=== PATIENT | male | born 1995 | race Caucasian/White ===

== ENCOUNTER 2024-07-06 09:00 | Outpatient (RCR) | payer OTHER, SELFPAY ==
--- NOTE | 2024-04-11 13:32 | OT.OPPOC ---
Physical, Occupational & Speech Therapy At [facility] Leonides Rossi [id number] 1995 Visit Care Team Role Provider Type Davide Gutierrez MD Family Provider Physician Address: [facility] [address], [facility] [place], [address] Perla Randolph DO Attending Provider Non-Staff Primary Care Provider Referring Provider Address: [facility] [place], [address] Occupational Therapy Plan of Care OT Outpatient Adult Evaluation Start: 04/11/24 10:40 Freq: Status: Active Protocol: Document 04/11/24 10:41 ARNAUD (Rec: 04/11/24 10:47 ARNAUD [id number]) General Information - Adult Visit Information Visit Number 1 Plan of Care Dates 04/11/24 - 06/20/24 Insurance Information [employer], 12 visits Session Time Visit Start Date 04/11/24 Visit Start Time 11:30 Visit Stop Time 12:15 Setting Treatment Setting Outpatient Care Visit Type Note Type Initial Evaluation Referral Referring Physician Perla Randolph Reason for Referral pain in L fingers Identification Identification Confirmed Yes Identification Confirmed By name, MR Previous Therapy Previous Therapy/Therapies Yes History of Therapy Pt has had manual therapy for R wrist, plantar fascitis, and sciatica Patient Questionnaires Quick Dash- Upper Extremity Quick Dash UE Score 34.1 Quick Dash UE Impairment 20 to 39% Impaired (Score 20- 39) Quick Dash- Work and Sports Modules Quick Dash W&S Score W 43.75, S 43.75 Quick Dash Work and Sport Impairment 40 to 59% Impaired (Score 40- 59) Goals Objective Measurements Objective Measurements AROM: L IP +20 to 52 (R IP +12 to 82); L MCP +10 to 31 (R MCP +10 to 50) 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 Senior Care Goals Senior Care Goals 1. Pt will demonstrate L 1st IP AROM flex to 70 or better for improved object manipulation. 2. 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 3. Pt will demonstrate L pain free aircraft ordnance technician strength within 10# or dominant hand for improved leisure tasks. 4. Pt will report improved perceived function with an improved QuickDash score of 25 or better. 5. Pt will report improved work function with an improved QuickDash W score of 25 or better. 6. Pt will report improved sport/leisure function with an improved QuickDash S score of 35 or better. 7. Pt will be I with HEP Assessment/Plan Assessment Patient Response Excellent Rehabilitation Potential Excellent Impairments Identified ADLs,Body Mechanics,Functional Activities,Pain,Weakness, Range of Motion,Meaningful Activities,Stiffness,Soft Tissue Mobility Treatment Assessment Pt is 28 yo M who has been referred for skilled OT services due to L hand weakness after injury to L thumb per order. Pt is R hand dominant. Pt reports that he cut himself on 02/07/24 when processing a deer. His knife slipped cutting himself near his L thumb IP. He said he could see bone, but he cleaned and dressed his wound and allowed it to heal. A few days after original injury he noted swelling and bruise. Pt went to his PCM approximately 1 month after injury due to persistent pain and decreased strength in his hand. Pt reports that recent xray showed a possible bone spur. 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 Pt reports that he typically ? pushes through the pain?. Pt reports pain primarily on palpation of scar area and surrounding IP, with gripping, and with aircraft ordnance technician and twist combination movements. Pt describes pain as initiating at the scar and then radiating throughout his thumb. Pt describes as sharp and 6/10. Pt reports occasional tingling in R thumb. Pt demonstrates a less than 8# aircraft ordnance technician strength difference; however, pt reports this is with 6/10 pain. Pt?s pinch strength difference are within norms and without any increased c/o pain. Pt presents with decreased web space in both hands with pronounced adductor tightness. OT is able to palpate thickening on the dorsum of L thumb proximal to IP, likely scar tissue from initial injury. Pt would benefit from skilled OT services to address STM, ROM, strength, pain management, and return to PLOF. Home Exercise Program HEP: scar massage, DIP PROM, adductor release techniques Reviewed with Patient Goals Plan Length of treatment (weeks) 10 Plan of Care Start Date 04/11/24 Plan of Care End Date 06/20/24 Treatment Frequency Once a Week Treatment Duration 45 Minutes Therapeutic Contents Active Range of Motion,Client Education,Functional Activities,Home Exercise Program,Joint Protection, Manual Therapy,Education, Neuromuscular Re-Education, Stretching/Flexibility Activities,Therapeutic Activities,Therapeutic Exercises,Modalities Modalities As Needed Types of Modalities Contrast Bath Additional Types of Modalities CP, PB, MHP Patient Instruction Home Exercise Program,Plan of Care,Questions/Concerns Functional Wrist/Hand Scan Hand Side Sensory Assessment Sensory Profile2 Electronically Signed by: Usha España OT 04/11/24 8894 If you are in agreement with this Plan of Care, please return a signed and dated copy. I have reviewed this Plan of Care and certify that the skilled therapy services above are required to meet the patient?s needs. Physician Signature Date Printed Name and Credentials Clinical Instructor Signature Printed Name and Credentials
--- NOTE | 2024-05-04 12:28 | OT.OP.TRT ---
Visit Care Team Role Provider Type M Feng Gutierrez MD Family Provider Physician Specialty: Pediatrics Address: [address] [place] [address], [place], [address] Email: [email or web address] Perla Randolph DO Attending Provider Non-Staff Primary Care Provider Referring Provider Specialty: Medical Address: [address] [place] [address], [id number] Email: Occupational Therapy Treatment Note OT Outpatient Treatment Note - Adult Start: 04/11/24 10:40 Freq: Status: Active Protocol: Document 05/04/24 12:14 ARNAUD (Rec: 05/04/24 12:28 ARNAUD [id number]) OT Outpatient Adult Treatment Note Session Time Visit Start Date 05/04/24 Visit Start Time 11:35 Visit Stop Time 12:10 Visit Information Visit Number 06/06 Plan of Care Dates 04/11/24 - 06/20/24 Insurance Information [facility], 12 visits Setting Treatment Setting Outpatient Care Visit Type Note Type Treatment Note - Subjective Identification Type Name Identification Reconciled With Medical Record Observations ?I feel like grabbing things that aren?t a solid object, like a curtain or a tarp, I?ve been noticing it.? Pt explains that he means he is having pain he cannot ignore at that time. Pt reports less pain when grasping something like a dumbbell. He has been carrying heavier items in his R hand because of his thumb. Pt reports pain at 6/10. Chief Complaint(s) Loss of Motion/Stiffness,Pain Effect on Activity,Restricts Patient/Caregiver Compliance with Home Fair Exercise Program - Objective Icer Air Conditioning Goals 1. Pt will demonstrate L 1st IP AROM flex to 70 or better for improved object manipulation. 2. 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 3. Pt will demonstrate L pain free shake table operator strength within 10# or dominant hand for improved leisure tasks. 4. Pt will report improved perceived function with an improved QuickDash score of 25 or better. 5. Pt will report improved work function with an improved QuickDash W score of 25 or better. 6. Pt will report improved sport/leisure function with an improved QuickDash S score of 35 or better. 7. Pt will be I with HEP - Exercises 1 Descriptor HEP: reviewed pt's HEP. Pt is consistently performing scar massage and IP PROM. OT re- educated pt on adductor release for improved web space and 3 options given on HEP for this. Pt verbalizes understanding. Manual Therapy Manual Therapy grade II glide L IP and MP for improved flexion L adductor release to improve web space PROM: L IP flexion, L MP flexion, composite L 1st digit flexion, L 1st digit palmar abduction, L 1st digit radial abduction Scar massage dorsal 1st digit at IP to pt tolerance - Assessment Patient Response to Treatment Excellent Rehabilitation Potential Excellent Impairments Identified ADLs,Body Mechanics,Functional Activities,Pain,Weakness, Range of Motion,Meaningful Activities,Stiffness,Soft Tissue Mobility Progress Towards Goals Good Progress Assessment of Overall Progress Improving - Plan Therapy Recommendations Continue with Current Program Amount of Therapy Recommended 2-3 Months Frequency of Treatment Once a Week Length of Session 45 Minutes Therapeutic Contents Active Range of Motion,Client Education,Functional Activities,Home Exercise Program,Joint Protection, Manual Therapy,Education, Neuromuscular Re-Education, Stretching/Flexibility Activities,Therapeutic Activities,Therapeutic Exercises,Modalities Modalities As Needed Types of Modalities Contrast Bath Additional Types of Modalities CP, PB, MHP
--- NOTE | 2024-05-09 12:05 | OT.OP.TRT ---
Visit Care Team Role Provider Type M Feng Gutierrez MD Family Provider Physician Specialty: Pediatrics Address: [address] [place] [address], [facility], [place], [address] Email: [email or web address] Perla Randolph DO Attending Provider Non-Staff Primary Care Provider Referring Provider Specialty: Medical Address: [address] [place] [address], [id number] Email: Occupational Therapy Treatment Note OT Outpatient Treatment Note - Adult Start: 04/11/24 10:40 Freq: Status: Active Protocol: Document 05/09/24 09:12 ARNAUD (Rec: 05/09/24 09:48 ARNAUD [id number]) OT Outpatient Adult Treatment Note Session Time Visit Start Date 05/09/24 Visit Start Time 09:05 Visit Stop Time 09:45 Visit Information Visit Number [id number] Plan of Care Dates 04/11/24 - 06/20/24 Insurance Information [facility], 12 visits Setting Treatment Setting Outpatient Care Visit Type Note Type Treatment Note - Subjective Identification Type Name Identification Reconciled With Medical Record Observations Pt reports that following last tx he was not able to tolerate the scar massage for several days. At start of tx he reports pain at 6/10 with touching his scar. Pt reports no pain during scar massage today following PB. Pt reports starting to have some pain at end of tx, did not rate. Chief Complaint(s) Loss of Motion/Stiffness,Pain Effect on Activity,Restricts Patient/Caregiver Compliance with Home Fair Exercise Program - Objective Prison Goals 1. Pt will demonstrate L 1st IP AROM flex to 70 or better for improved object manipulation. 2. 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 3. Pt will demonstrate L pain free protection agent strength within 10# or dominant hand for improved leisure tasks. 4. Pt will report improved perceived function with an improved QuickDash score of 25 or better. 5. Pt will report improved work function with an improved QuickDash W score of 25 or better. 6. Pt will report improved sport/leisure function with an improved QuickDash S score of 35 or better. 7. Pt will be I with HEP - Treatment 1 Descriptor PB to R hand x 10 minutes Exercises 1 Descriptor HEP: reviewed pt's HEP. Pt was unable to tolerate scar massage for several days after last tx. Pt reports performing adductor release and IP exercises regularly. Due to pt tolerating scar massage well after PB today, OT suggested that pt may try after heating his hand. Manual Therapy Manual Therapy grade II glide L IP and MP for improved flexion L adductor release to improve web space PROM: L IP flexion, L MP flexion, composite L 1st digit flexion, L 1st digit palmar abduction, L 1st digit radial abduction Scar massage dorsal 1st digit at IP to pt tolerance - Assessment Patient Response to Treatment Excellent Rehabilitation Potential Excellent Impairments Identified ADLs,Body Mechanics,Functional Activities,Pain,Weakness, Range of Motion,Meaningful Activities,Stiffness,Soft Tissue Mobility Progress Towards Goals Good Progress Assessment of Overall Progress Improving Assessment of Improvement Pt tolerated tx much better following PB at start of today 's tx. Pt was able to tolerate scar massage and passive stretch with less discomfort. OT recommends pt applying heat at home prior to HEP for improved comfort. Pt verbalizes understanding. Pt continues to have significant stiffness in L thumb and continues to benefit from skilled OT services for manual work. OT hopes to progress to strengthening in next few visits. Cont per established POC. - Plan Therapy Recommendations Continue with Current Program Amount of Therapy Recommended 2-3 Months Frequency of Treatment Once a Week Length of Session 45 Minutes Therapeutic Contents Active Range of Motion,Client Education,Functional Activities,Home Exercise Program,Joint Protection, Manual Therapy,Education, Neuromuscular Re-Education, Stretching/Flexibility Activities,Therapeutic Activities,Therapeutic Exercises,Modalities Modalities As Needed Types of Modalities Contrast Bath Additional Types of Modalities CP, PB, MHP
--- NOTE | 2024-05-20 10:13 | OT.OP.TRT ---
Visit Care Team Role Provider Type M Feng Gutierrez MD Family Provider Physician Specialty: Pediatrics Address: [facility], [facility], [place], [address] Email: [email or web address] Perla Randolph DO Attending Provider Non-Staff Primary Care Provider Referring Provider Specialty: Medical Address: [address] [place] [address], [id number] Email: Occupational Therapy Treatment Note OT Outpatient Treatment Note - Adult Start: 04/11/24 10:40 Freq: Status: Active Protocol: Document 05/20/24 07:25 ARNAUD (Rec: 05/20/24 07:21 ARNAUD [id number]) OT Outpatient Adult Treatment Note Session Time Visit Start Date 05/20/24 Visit Start Time 07:35 Visit Stop Time 08:12 Visit Information Visit Number 08/04 Plan of Care Dates 04/11/24 - 06/20/24 Insurance Information [facility], 12 visits Setting Treatment Setting Outpatient Care Visit Type Note Type Treatment Note - Subjective Identification Type Name Identification Reconciled With Medical Record Observations When I do the scar massaging it's less intense. Pt reports he performs 2-3x/day. Pt reports increased pain when using his hand outside in the cold at the end ranges of flexion and rates at 6/10 when it happens. Pt reports that the rest of the time he does not often have pain, when he does it's a little bit. Chief Complaint(s) Loss of Motion/Stiffness,Pain Effect on Activity,Restricts - Objective Objective Measurements IP AROM flex to 72; MCP flex 46 Retirement Goals 1. Pt will demonstrate L 1st IP AROM flex to 70 or better for improved object manipulation. MET 05/20/24 2. 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 3. Pt will demonstrate L pain free auto radio mechanic strength within 10# or dominant hand for improved leisure tasks. 4. Pt will report improved perceived function with an improved QuickDash score of 25 or better. 5. Pt will report improved work function with an improved QuickDash W score of 25 or better. 6. Pt will report improved sport/leisure function with an improved QuickDash S score of 35 or better. 7. Pt will be I with HEP - Treatment 1 Descriptor PB to R hand x 10 minutes Exercises 2 Descriptor isometric thumb IP flex, ext , PIP flex, ext x 10 each with 3-5 second holds 1 Descriptor HEP: reviewed pt's HEP. Pt continues to report performing scar massage regularly; however, since last tx he has been inconsistent with adductor release and IP exercises regularly. OT emphasizes importance of this exercises for improved web space and thumb mechanics Manual Therapy Manual Therapy grade II glide L IP and MP for improved flexion L adductor release to improve web space PROM: L IP flexion, L MP flexion, composite L 1st digit flexion, L 1st digit palmar abduction, L 1st digit radial abduction Scar massage dorsal 1st digit at IP to pt tolerance - Assessment Patient Response to Treatment Excellent Rehabilitation Potential Excellent Impairments Identified ADLs,Body Mechanics,Functional Activities,Pain,Weakness, Range of Motion,Meaningful Activities,Stiffness,Soft Tissue Mobility Progress Towards Goals Good Progress Assessment of Overall Progress Improving Assessment of Improvement Pt tolerates manual techniques well following PB. Pt reports that he can barely tolerate scar massage when his hand is not heated. Pt continues to have reduced web spacing and OT notes very thick and tight adductors. OT encourages pt to perform adductor release more regularly and explains the importance of this exercises. Pt demonstrates improved AROM of IP and MCP, meeting LTG #1 and making progress toward LTG #2. Overall, pt reports reduced instances of pain. Cont per established POC. Reviewed with Patient/Caregiver Goals,Progress Being Made,Home Exercise Program Patient/Caregiver Understanding Excellent - Plan Therapy Recommendations Continue with Current Program Amount of Therapy Recommended 2-3 Months Frequency of Treatment Once a Week Length of Session 45 Minutes Therapeutic Contents Active Range of Motion,Client Education,Functional Activities,Home Exercise Program,Joint Protection, Manual Therapy,Education, Neuromuscular Re-Education, Stretching/Flexibility Activities,Therapeutic Activities,Therapeutic Exercises,Modalities Modalities As Needed Types of Modalities Contrast Bath Additional Types of Modalities CP, PB, MHP
--- NOTE | 2024-05-23 10:18 | OT.OP.TRT ---
Visit Care Team Role Provider Type M Feng Gutierrez MD Family Provider Physician Specialty: Pediatrics Address: [facility], [facility] [place], [address] Email: [email or web address] Perla Randolph DO Attending Provider Non-Staff Primary Care Provider Referring Provider Specialty: Medical Address: [address] [place] [address], [id number] Email: Occupational Therapy Treatment Note OT Outpatient Treatment Note - Adult Start: 04/11/24 10:40 Freq: Status: Active Protocol: Document 05/23/24 09:00 ARNAUD (Rec: 05/23/24 10:17 ARNAUD [id number]) OT Outpatient Adult Treatment Note Session Time Visit Start Date 05/23/24 Visit Start Time 09:05 Visit Stop Time 09:45 Visit Information Visit Number 09/03 Plan of Care Dates 04/11/24 - 06/20/24 Insurance Information [facility], 12 visits Setting Treatment Setting Outpatient Care Visit Type Note Type Treatment Note - Subjective Identification Type Name Identification Reconciled With Medical Record Observations When it's cold obviously it hurts. The only real thing I notice is pain, so not like weakness. Everyday I stretch it and massage it. Pt reports pain at worse 6/10 and reduces to 1-2/10 with continued stretch. Chief Complaint(s) Loss of Motion/Stiffness,Pain Effect on Activity,Restricts - Objective Cobbler Sole Goals 1. Pt will demonstrate L 1st IP AROM flex to 70 or better for improved object manipulation. MET 05/20/24 2. 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 3. Pt will demonstrate L pain free urogynecology physician strength within 10# or dominant hand for improved leisure tasks. 4. Pt will report improved perceived function with an improved QuickDash score of 25 or better. 5. Pt will report improved work function with an improved QuickDash W score of 25 or better. 6. Pt will report improved sport/leisure function with an improved QuickDash S score of 35 or better. 7. Pt will be I with HEP - Treatment 1 Descriptor PB to R hand x 10 minutes Exercises 3 Descriptor web space: web space to web space followed by stretch x 30 seconds x5 contract relax exercises 30 second hold and 15 second stretch x5 2 Descriptor isometric thumb IP flex, ext , PIP flex, ext x 10 each with 3-5 second holds 1 Descriptor HEP: OT reviewed new exercises for improving web space and overall mechanics of L thumb. Pt verbalizes understanding for web space to web space exercises and contract relax exercises. Manual Therapy Manual Therapy grade II glide L IP and MP for improved flexion L adductor release to improve web space PROM: L IP flexion, L MP flexion, composite L 1st digit flexion, L 1st digit palmar abduction, L 1st digit radial abduction Scar massage dorsal 1st digit at IP to pt tolerance - Assessment Patient Response to Treatment Excellent Rehabilitation Potential Excellent Impairments Identified ADLs,Body Mechanics,Functional Activities,Pain,Weakness, Range of Motion,Meaningful Activities,Stiffness,Soft Tissue Mobility Progress Towards Goals Good Progress Assessment of Overall Progress Improving Assessment of Improvement Pt is pleasant and cooperative and appears eager to improve. Pt continues to have tight musculature around L thumb and reduce web spacing and continues to benefit from STM for scar mgmt as well as web spacing as well as for improved ROM of joints. Pt reports a feeling of looseness following manual techniques. Pt responded well to addition of web space HEP exercises and reports feeling improved movement following these during today's tx. Pt verbalizes understanding for performing HEP. Pt continues to be appropriate for skilled OT services. Cont per established POC. Reviewed with Patient/Caregiver Goals,Progress Being Made,Home Exercise Program Patient/Caregiver Understanding Excellent - Plan Therapy Recommendations Continue with Current Program Amount of Therapy Recommended 2-3 Months Frequency of Treatment Once a Week Length of Session 45 Minutes Therapeutic Contents Active Range of Motion,Client Education,Functional Activities,Home Exercise Program,Joint Protection, Manual Therapy,Education, Neuromuscular Re-Education, Stretching/Flexibility Activities,Therapeutic Activities,Therapeutic Exercises,Modalities Modalities As Needed Types of Modalities Contrast Bath Additional Types of Modalities CP, PB, MHP
--- NOTE | 2024-06-06 12:58 | OT.OP.TRT ---
Visit Care Team Role Provider Type M Feng Gutierrez MD Family Provider Physician Specialty: Pediatrics Address: [facility], [facility], [place], [address] Email: [email or web address] Perla Randolph DO Attending Provider Non-Staff Primary Care Provider Referring Provider Specialty: Medical Address: [address] [place] [address], [id number] Email: Occupational Therapy Treatment Note OT Outpatient Treatment Note - Adult Start: 04/11/24 10:40 Freq: Status: Active Protocol: Document 06/06/24 11:25 ARNAUD (Rec: 06/06/24 10:34 ARNAUD [id number]) OT Outpatient Adult Treatment Note Session Time Visit Start Date 06/06/24 Visit Start Time 11:25 Visit Stop Time 12:15 Visit Information Visit Number 10/04 Plan of Care Dates 04/11/24 - 06/20/24 Insurance Information [facility], 12 visits Setting Treatment Setting Outpatient Care Visit Type Note Type Treatment Note - Subjective Identification Type Name Identification Reconciled With Medical Record Observations It still hurts when I do the scar massage and exercises. Pt reports that for every day tasks he has less pain. Chief Complaint(s) Loss of Motion/Stiffness,Pain Effect on Activity,Restricts - Objective Objective Measurements Probate Clerk: L 125, 119, 85 (avg 109. 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 Pt will demonstrate L 1st IP AROM flex to 70 or better for improved object manipulation. MET 05/20/24 2. 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 3. Pt will demonstrate L pain free radio reporter strength within 10# or dominant hand for improved leisure tasks. MET 06/06/24 4. Pt will report improved perceived function with an improved QuickDash score of 25 or better. MET 06/06/24 5. Pt will report improved work function with an improved QuickDash W score of 25 or better. MET 06/06/24 6. Pt will report improved sport/leisure function with an improved QuickDash S score of 35 or better.MET 06/06/24 7. Pt will be I with HEP - Treatment 1 Descriptor PB to R hand x 10 minutes Exercises 3 Descriptor web space: web space to web space followed by stretch x 30 seconds x5 2 Descriptor tputty: 10-20 reps each 3 jaw pinch MCP and IP composite flexion radial abd 1 Descriptor HEP: OT issued pt red tputty and instructed in HEP to be performed 3x/wk. OT continues to stress importance of web space health and related HEP exercises. Pt verbalizes understanding Manual Therapy Manual Therapy grade II glide L IP and MP for improved flexion L adductor release to improve web space PROM: L IP flexion, L MP flexion, composite L 1st digit flexion, L 1st digit palmar abduction, L 1st digit radial abduction Scar massage dorsal 1st digit at IP to pt tolerance - Assessment Patient Response to Treatment Excellent Rehabilitation Potential Excellent Impairments Identified ADLs,Body Mechanics,Functional Activities,Pain,Weakness, Range of Motion,Meaningful Activities,Stiffness,Soft Tissue Mobility Progress Towards Goals Good Progress Assessment of Overall Progress Improving Assessment of Improvement Pt continues to be pleasant and cooperative and appears eager to improve. Pt continues to have tight thumb adductors and reduced web spacing and benefits from STM and stretching. Pt tolerates manual techniques well. Pt reports improvements in perceived function, having a 15.9 improvement in QD, 25 point improvement in QDW, and 31.25 point improvement in QDS , see objective section for details. Pt also demonstrates improvement in radio reporter and pinch strengths with radio reporter improving by 17# and pinches by 2.25 to 10#, see objective section for specific details. PT has met LTGs 3, 4, 5, and 6.Pt continues to be appropriate for skilled OT services to address remaining functional goals. Cont per established POC. Reviewed with Patient/Caregiver Goals,Progress Being Made,Home Exercise Program Patient/Caregiver Understanding Excellent - Plan Therapy Recommendations Continue with Current Program Amount of Therapy Recommended 2-3 Months Frequency of Treatment Once a Week Length of Session 45 Minutes Therapeutic Contents Active Range of Motion,Client Education,Functional Activities,Home Exercise Program,Joint Protection, Manual Therapy,Education, Neuromuscular Re-Education, Stretching/Flexibility Activities,Therapeutic Activities,Therapeutic Exercises,Modalities Modalities As Needed Types of Modalities Contrast Bath Additional Types of Modalities CP, PB, MHP
--- NOTE | 2024-06-15 09:00 | OT.OP.TRT ---
Visit Care Team Role Provider Type M Feng Gutierrez MD Family Provider Physician Specialty: Pediatrics Address: [facility], [facility] [place], [address] Email: [email or web address] Perla Randolph DO Attending Provider Non-Staff Primary Care Provider Referring Provider Specialty: Medical Address: [address] [place] [address], [id number] Email: Occupational Therapy Treatment Note OT Outpatient Treatment Note - Adult Start: 04/11/24 10:40 Freq: Status: Active Protocol: Document 06/15/24 08:15 ARNAUD (Rec: 06/15/24 08:11 ARNAUD [id number]) OT Outpatient Adult Treatment Note Session Time Visit Start Date 06/15/24 Visit Start Time 08:15 Visit Stop Time 08:55 Visit Information Visit Number 11/03 Plan of Care Dates 04/11/24 - 06/20/24 Insurance Information [facility], 12 visits Setting Treatment Setting Outpatient Care Visit Type Note Type Treatment Note - Subjective Identification Type Name Identification Reconciled With Medical Record Observations Pt reports that he has increased pain when it's really cold. Pt also says that he has noticed that when opening frozen food resealable bags for the first time he has a really difficult time opening it. He switched hands due to the pain. Pt reports that when he first started with therapy everything bothered him, but now it only happens with very specific tasks. Another example given was when transferring a pt using a sheet method, he had increased pain but was able to complete the task. Pt reports pain during these tasks at 6/ 10. Pt reports that he can now carry 50# weight across the gym without difficulty. This used to cause him pain. Chief Complaint(s) Loss of Motion/Stiffness,Pain Effect on Activity,Restricts - Objective Jail Goals 1. Pt will demonstrate L 1st IP AROM flex to 70 or better for improved object manipulation. MET 05/20/24 2. 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 3. Pt will demonstrate L pain free irradiated fuel handler strength within 10# or dominant hand for improved leisure tasks. MET 06/06/24 4. Pt will report improved perceived function with an improved QuickDash score of 25 or better. MET 06/06/24 5. Pt will report improved work function with an improved QuickDash W score of 25 or better. MET 06/06/24 6. Pt will report improved sport/leisure function with an improved QuickDash S score of 35 or better.MET 06/06/24 7. Pt will be I with HEP - Treatment 1 Descriptor PB to R hand x 10 minutes Exercises 5 Descriptor thumb stability: EPB rubber band x30 4 Descriptor pinch strength:10x2 graded clothespin lateral pinch yellow, red, green, blue , black 3 Descriptor web space: web space to web space followed by stretch x 30 seconds x5 contract relax (30sec/15sec) x3 Manual Therapy Manual Therapy grade II glide L IP and MP for improved flexion L adductor release to improve web space PROM: L IP flexion, L MP flexion, composite L 1st digit flexion, L 1st digit palmar abduction, L 1st digit radial abduction Scar massage dorsal 1st digit at IP to pt tolerance - Assessment Patient Response to Treatment Excellent Rehabilitation Potential Excellent Impairments Identified ADLs,Body Mechanics,Functional Activities,Pain,Weakness, Range of Motion,Meaningful Activities,Stiffness,Soft Tissue Mobility Progress Towards Goals Good Progress Assessment of Overall Progress Improving Assessment of Improvement Pt continues to be pleasant and cooperative and appears eager to improve. Pt continues to have tight thumb adductors and reduced web spacing and benefits from STM and stretching. Pt tolerates manual techniques well. Pt reports no pain throughout tx session today and reports that it feels loose and ready for the day following tx. Pt requires vcs to perform contract relax exercise correctly and for EPB rubber band exercise. Otherwise, pt is able to perform exercises correctly on demonstration. Pt reports improved daily function, with fewer occasions of his thumb interrupting activity. Pt continues to be appropriate for skilled OT services to address remaining functional goals. Cont per established POC. Reviewed with Patient/Caregiver Goals,Progress Being Made,Home Exercise Program Patient/Caregiver Understanding Excellent - Plan Therapy Recommendations Continue with Current Program Amount of Therapy Recommended 2-3 Months Frequency of Treatment Once a Week Length of Session 45 Minutes Therapeutic Contents Active Range of Motion,Client Education,Functional Activities,Home Exercise Program,Joint Protection, Manual Therapy,Education, Neuromuscular Re-Education, Stretching/Flexibility Activities,Therapeutic Activities,Therapeutic Exercises,Modalities Modalities As Needed Types of Modalities Contrast Bath Additional Types of Modalities CP, PB, MHP
--- NOTE | 2024-06-20 08:30 | OT.OPPN ---
Current Diagnoses Pain in left finger(s) (06/15/24) OT Progress Note OT Outpatient Treatment Note - Adult Start: 04/11/24 10:40 Freq: Status: Active Protocol: Document 06/20/24 08:20 ARNAUD (Rec: 06/20/24 08:30 ARNAUD [id number]) OT Outpatient Adult Treatment Note Setting Treatment Setting Outpatient Care Visit Type Note Type Progress Note - - Objective Objective Measurements Process Eng: L 125, 119, 85 (avg 109. 7 #) Pinch: lateral L 22.25#, pincer 19#, 3 jaw 22# Quick Dash: 18.2, Quick Dash Work 18.75, Quick Dash 12.5 IP AROM flex to 72; MCP flex 46 Chcf Goals 1. Pt will demonstrate L 1st IP AROM flex to 70 or better for improved object manipulation. MET 05/20/24 1a. Pt will demonstrate L 1st IP AROM flex to 80 or better for improved object manipulation. 2. 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 3. Pt will demonstrate L pain free smog technician strength within 10# or dominant hand for improved leisure tasks. MET 06/06/24 4. Pt will report improved perceived function with an improved QuickDash score of 25 or better. MET 06/06/24 4a. Pt will report improved perceived function with an improved QuickDash score of 8 or better. 5. Pt will report improved work function with an improved QuickDash W score of 25 or better. MET 06/06/24 5a. Pt will report improved work function with an improved QuickDash W score of 10 or better. 6. Pt will report improved sport/leisure function with an improved QuickDash S score of 35 or better.MET 06/06/24 7. Pt will be I with HEP - - Assessment Patient Response to Treatment Excellent Rehabilitation Potential Excellent Impairments Identified ADLs,Body Mechanics,Functional Activities,Pain,Weakness, Range of Motion,Meaningful Activities,Stiffness,Soft Tissue Mobility Progress Towards Goals Good Progress Assessment of Overall Progress Improving Assessment of Improvement Pt had to cancel his appointment today due to flight medical appointment. OT called and spoke with pt concerning progress and pt's plans moving forward. Pt told OT that he would like to continue with OT for improved ROM and decreased pain. Pt continues to have pain complaints of 6/10. During txs , pt presents with tight thumb adductors and reduced web spacing, pt also has decreased overall thumb AROM and benefits from STM, stretching, and manual techniques. Pt requires vcs to perform contract relax exercise correctly and for EPB rubber band exercise, benefit from additional guidance from OT. Pt continues to be appropriate for skilled OT services to address remaining functional goals. Pt would benefit from 1x/wk x 5wks. Reviewed with Patient/Caregiver Goals,Progress Being Made,Home Exercise Program Patient/Caregiver Understanding Excellent - Plan Therapy Recommendations Continue with Current Program Comment 5 weeks Frequency of Treatment Once a Week Length of Session 45 Minutes Therapeutic Contents Active Range of Motion,Client Education,Functional Activities,Home Exercise Program,Joint Protection, Manual Therapy,Education, Neuromuscular Re-Education, Stretching/Flexibility Activities,Therapeutic Activities,Therapeutic Exercises,Modalities Modalities As Needed Types of Modalities Contrast Bath Additional Types of Modalities CP, PB, MHP If you are in agreement with this Plan of Care, please return a signed and dated copy. I have reviewed this Plan of Care and certify that the skilled therapy services above are required to meet the patient?s needs. Physician Signature Date Printed Name and Credentials Clinical Instructor Signature Printed Name and Credentials
--- NOTE | 2024-06-22 10:34 | OT.OP.TRT ---
Visit Care Team Role Provider Type M Feng Gutierrez MD Family Provider Physician Specialty: Pediatrics Address: [facility], [facility] [[email or web address] B, [place], [address] Email: [email or web address] Perla Randolph DO Attending Provider Non-Staff Primary Care Provider Referring Provider Specialty: Medical Address: [address] [place] [address], [id number] Email: Occupational Therapy Treatment Note OT Outpatient Treatment Note - Adult Start: 04/11/24 10:40 Freq: Status: Active Protocol: Document 06/22/24 08:55 ARNAUD (Rec: 06/22/24 08:56 ARNAUD [id number]) OT Outpatient Adult Treatment Note Session Time Visit Start Date 06/22/24 Visit Start Time 09:00 Visit Stop Time 09:42 Visit Information Visit Number 1/5 (7 previous) Plan of Care Dates 06/20/23 - 07/26/24 Insurance Information [facility], 12 visits Setting Treatment Setting Outpatient Care Visit Type Note Type Treatment Note - Subjective Identification Type Name Identification Reconciled With Medical Record Observations Pt reports that he still has pain with pinching tasks. Pt says the pain is there and I can't not notice it. Pt reports that this morning he was trying to open a resealable bag of frozen food and it was very difficult to complete. Pt without c/o pain during tx. Chief Complaint(s) Loss of Motion/Stiffness,Pain Effect on Activity,Restricts - Objective Mcc Goals 1. Pt will demonstrate L 1st IP AROM flex to 70 or better for improved object manipulation. MET 05/20/24 1a. Pt will demonstrate L 1st IP AROM flex to 80 or better for improved object manipulation. 2. 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 3. Pt will demonstrate L pain free service station operator strength within 10# or dominant hand for improved leisure tasks. MET 06/06/24 4. Pt will report improved perceived function with an improved QuickDash score of 25 or better. MET 06/06/24 4a. Pt will report improved perceived function with an improved QuickDash score of 8 or better. 5. Pt will report improved work function with an improved QuickDash W score of 25 or better. MET 06/06/24 5a. Pt will report improved work function with an improved QuickDash W score of 10 or better. 6. Pt will report improved sport/leisure function with an improved QuickDash S score of 35 or better.MET 06/06/24 7. Pt will be I with HEP - Treatment 1 Descriptor PB to R hand x 10 minutes Exercises 5 Descriptor thumb stability: EPB rubber band x30 lateral pinch pulls x 15 4 Descriptor pinch strength:15x2 graded clothespin lateral pinch yellow, red, green, blue , black 3 Descriptor web space: web space to web space followed by stretch x 30 seconds x5 contract relax (30sec/15sec) x3 2 Descriptor tputty: 10-20 reps each 3 jaw pinch MCP and IP composite flexion radial abd Manual Therapy Manual Therapy grade II glide L IP and MP for improved flexion L adductor release to improve web space PROM: L IP flexion, L MP flexion, composite L 1st digit flexion, L 1st digit palmar abduction, L 1st digit radial abduction Scar massage dorsal 1st digit at IP to pt tolerance - Assessment Patient Response to Treatment Excellent Rehabilitation Potential Excellent Impairments Identified ADLs,Body Mechanics,Functional Activities,Pain,Weakness, Range of Motion,Meaningful Activities,Stiffness,Soft Tissue Mobility Progress Towards Goals Good Progress Assessment of Overall Progress Improving Assessment of Improvement Pt continues to be pleasant and cooperative and eager to improve. Pt demonstrates I with tputty HEP. Pt continues to need vc to perform contract relax exercises correctly and EPB rubber band strengthening exercises. Pt tolerates increased reps and new exercises for improved pinching. Pt reports that his pain is with temperature change and lateral pinching with resistance. OT encourages pt to increase the frequency of his tputty HEP to daily, if he has no increased pain or significant fatigue. OT recommended following up these exercises with his web space releasing exercises. Pt verbalized understanding. Pt continues to be appropriate for skilled OT services. OT to grade strengthening tasks as pt is able. Cont per POC. Reviewed with Patient/Caregiver Goals,Progress Being Made,Home Exercise Program Patient/Caregiver Understanding Excellent - Plan Therapy Recommendations Continue with Current Program Comment 5 weeks Frequency of Treatment Once a Week Length of Session 45 Minutes Therapeutic Contents Active Range of Motion,Client Education,Functional Activities,Home Exercise Program,Joint Protection, Manual Therapy,Education, Neuromuscular Re-Education, Stretching/Flexibility Activities,Therapeutic Activities,Therapeutic Exercises,Modalities Modalities As Needed Types of Modalities Contrast Bath Additional Types of Modalities CP, PB, MHP
--- NOTE | 2024-06-29 10:41 | OT.OP.TRT ---
Visit Care Team Role Provider Type M Feng Gutierrez MD Family Provider Physician Specialty: Pediatrics Address: [address] [place] [address], [facility], [place], [address] Email: [email or web address] Perla Randolph DO Attending Provider Non-Staff Primary Care Provider Referring Provider Specialty: Medical Address: [address] [place] [address], [address] Email: Occupational Therapy Treatment Note OT Outpatient Treatment Note - Adult Start: 04/11/24 10:40 Freq: Status: Active Protocol: Document 06/29/24 09:00 ARNAUD (Rec: 06/29/24 08:51 ARNAUD [id number]) OT Outpatient Adult Treatment Note Session Time Visit Start Date 06/29/24 Visit Start Time 09:00 Visit Stop Time 09:43 Visit Information Visit Number 2/5 (7 previous) Plan of Care Dates 06/20/23 - 07/26/24 Insurance Information [employer], 12 visits Setting Treatment Setting Outpatient Care Visit Type Note Type Treatment Note - Subjective Identification Type Name Identification Reconciled With Medical Record Observations Pt reports that the other day he did 50# farmers carries at the gym and didn't have any pain or difficulty with his L hand. Pt reports that fully flexed position and opening things (frozen bag) as well as pain when using his hand in the cold. It was really limiting me at first but I can do those things now. Chief Complaint(s) Loss of Motion/Stiffness,Pain Effect on Activity,Restricts - Objective Manager Trust Goals 1. Pt will demonstrate L 1st IP AROM flex to 70 or better for improved object manipulation. MET 05/20/24 1a. Pt will demonstrate L 1st IP AROM flex to 80 or better for improved object manipulation. 2. 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 3. Pt will demonstrate L pain free outsole splicer strength within 10# or dominant hand for improved leisure tasks. MET 06/06/24 4. Pt will report improved perceived function with an improved QuickDash score of 25 or better. MET 06/06/24 4a. Pt will report improved perceived function with an improved QuickDash score of 8 or better. 5. Pt will report improved work function with an improved QuickDash W score of 25 or better. MET 06/06/24 5a. Pt will report improved work function with an improved QuickDash W score of 10 or better. 6. Pt will report improved sport/leisure function with an improved QuickDash S score of 35 or better.MET 06/06/24 7. Pt will be I with HEP - Treatment 1 Descriptor PB to R hand x 10 minutes Exercises 5 Descriptor thumb stability: EPB rubber band x lateral pinch pulls x 4 Descriptor pinch strength: graded clothespin lateral pinch yellow, red, green, blue , black 10x2 black digi flex x30 tband lateral pinch pull (L5) x 30 3 Descriptor web space: web space to web space followed by stretch x 30 seconds x5 contract relax (30sec/15sec) x3 2 Descriptor tputty (blue): 10 reps each 3 jaw pinch MCP and IP composite flexion 1 Descriptor HEP: Manual Therapy Manual Therapy grade II glide L IP and MP for improved flexion L adductor release to improve web space PROM: L IP flexion, L MP flexion, composite L 1st digit flexion, L 1st digit palmar abduction, L 1st digit radial abduction Scar massage dorsal 1st digit at IP to pt tolerance - Assessment Patient Response to Treatment Excellent Rehabilitation Potential Excellent Impairments Identified ADLs,Body Mechanics,Functional Activities,Pain,Weakness, Range of Motion,Meaningful Activities,Stiffness,Soft Tissue Mobility Progress Towards Goals Good Progress Assessment of Overall Progress Improving Assessment of Improvement Pt continues to be pleasant and cooperative and eager to improve. Pt demonstrates I with tputty HEP. Putty was increased to blue resistance. Pt continues to need vc to perform contract relax exercises correctly. Pt tolerates increased reps and new exercises for improved pinching. Pt reports that his pain is primarily associated with temperature change and lateral pinching with resistance. Last tx, OT encouraged pt to increase the frequency of his tputty HEP to daily, however, with increased resistance OT recommended that he return to 3x/wk initially. Pt verbalizes understanding. OT recommended following up these exercises with his web space releasing exercises. Pt verbalized understanding. Pt continues to be appropriate for skilled OT services. OT to grade strengthening tasks as pt is able. Cont per POC. Reviewed with Patient/Caregiver Goals,Progress Being Made,Home Exercise Program Patient/Caregiver Understanding Excellent - Plan Therapy Recommendations Continue with Current Program Comment 5 weeks Frequency of Treatment Once a Week Length of Session 45 Minutes Therapeutic Contents Active Range of Motion,Client Education,Functional Activities,Home Exercise Program,Joint Protection, Manual Therapy,Education, Neuromuscular Re-Education, Stretching/Flexibility Activities,Therapeutic Activities,Therapeutic Exercises,Modalities Modalities As Needed Types of Modalities Contrast Bath Additional Types of Modalities CP, PB, MHP
--- NOTE | 2024-07-06 09:43 | OT.OP.TRT ---
Visit Care Team Role Provider Type M Feng Gutierrez MD Family Provider Physician Specialty: Pediatrics Address: [facility], [facility], [place], [address] Email: [email or web address] Perla Randolph DO Attending Provider Non-Staff Primary Care Provider Referring Provider Specialty: Medical Address: [address] [place] [address], [id number] Email: Occupational Therapy Treatment Note OT Outpatient Treatment Note - Adult Start: 04/11/24 10:40 Freq: Status: Active Protocol: Document 07/06/24 09:00 ARNAUD (Rec: 07/06/24 08:55 ARNAUD [id number]) OT Outpatient Adult Treatment Note Session Time Visit Start Date 07/06/24 Visit Start Time 08:58 Visit Stop Time 09:38 Visit Information Visit Number 3/5 (7 previous) Plan of Care Dates 06/20/23 - 07/26/24 Insurance Information [facility], 12 visits Setting Treatment Setting Outpatient Care Visit Type Note Type Treatment Note - Subjective Identification Type Name Identification Reconciled With Medical Record Observations It's the same. When it gets cold it hurts. It may not be as bad with opening things. The time I really notice it is when I'm doing a full flex. Chief Complaint(s) Loss of Motion/Stiffness,Pain Effect on Activity,Restricts - Objective Residential Goals 1. Pt will demonstrate L 1st IP AROM flex to 70 or better for improved object manipulation. MET 05/20/24 1a. Pt will demonstrate L 1st IP AROM flex to 80 or better for improved object manipulation. 2. Pt will demonstrate L 1st MCP flex to 50 or better for improved resource conservation specialist tasks. 3. Pt will demonstrate L pain free resource conservation specialist strength within 10# or dominant hand for improved leisure tasks. MET 06/06/24 4. Pt will report improved perceived function with an improved QuickDash score of 25 or better. MET 06/06/24 4a. Pt will report improved perceived function with an improved QuickDash score of 8 or better. 5. Pt will report improved work function with an improved QuickDash W score of 25 or better. MET 06/06/24 5a. Pt will report improved work function with an improved QuickDash W score of 10 or better. 6. Pt will report improved sport/leisure function with an improved QuickDash S score of 35 or better.MET 06/06/24 7. Pt will be I with HEP MET - Treatment 1 Descriptor PB to R hand x 10 minutes Exercises 5 Descriptor thumb stability: EPB rubber band x 30 4 Descriptor pinch strength: graded clothespin lateral pinch red, green, blue, black 10x2 black digi flex x30 tband lateral pinch pull (L5) x 50 3 Descriptor web space: web space to web space followed by stretch x 30 seconds x4 contract relax (30sec/15sec) x4 1 Descriptor HEP: Manual Therapy Manual Therapy grade II glide L IP and MP for improved flexion L adductor release to improve web space PROM: L IP flexion, L MP flexion, composite L 1st digit flexion, L 1st digit palmar abduction, L 1st digit radial abduction Scar massage dorsal 1st digit at IP to pt tolerance - Assessment Patient Response to Treatment Excellent Rehabilitation Potential Excellent Impairments Identified ADLs,Body Mechanics,Functional Activities,Pain,Weakness, Range of Motion,Meaningful Activities,Stiffness,Soft Tissue Mobility Progress Towards Goals Good Progress Assessment of Overall Progress Improving Assessment of Improvement Pt continues to be pleasant and cooperative and eager to improve. Pt continues to have decreased web space and tight thumb adductors, benefiting from manual techniques. Pt continues to need vc to perform contract relax exercises correctly. Pt tolerates increased reps with tband pulls. Pt continues to be appropriate for skilled OT services. Pt denies pain during tx today other than mild discomfort with scar massage. Cont per POC. Reviewed with Patient/Caregiver Goals,Progress Being Made,Home Exercise Program Patient/Caregiver Understanding Excellent - Plan Therapy Recommendations Continue with Current Program Comment 5 weeks Frequency of Treatment Once a Week Length of Session 45 Minutes Therapeutic Contents Active Range of Motion,Client Education,Functional Activities,Home Exercise Program,Joint Protection, Manual Therapy,Education, Neuromuscular Re-Education, Stretching/Flexibility Activities,Therapeutic Activities,Therapeutic Exercises,Modalities Modalities As Needed Types of Modalities Contrast Bath Additional Types of Modalities CP, PB, MHP
--- NOTE | 2024-07-27 09:35 | OT.OP.DC ---
Visit Care Team Role Provider Type Davide Gutierrez MD Family Provider Physician Address: [facility], [facility], [place], [address] Email: [email or web address] Perla Randolph DO Attending Provider Non-Staff Primary Care Provider Referring Provider Address: [address] [place] [address], [id number] Email: OT Outpatient OT Outpatient Adult Evaluation Start: 04/11/24 10:40 Freq: Status: Active Protocol: Document 04/11/24 10:41 ARNAUD (Rec: 04/11/24 10:47 ARNAUD [id number]) General Information - Adult Visit Information Visit Number 1 Plan of Care Dates 04/11/24 - 06/20/24 Insurance Information [employer], 12 visits Session Time Visit Start Date 04/11/24 Visit Start Time 11:30 Visit Stop Time 12:15 Setting Treatment Setting Outpatient Care Visit Type Note Type Initial Evaluation Referral Referring Physician Perla Randolph Reason for Referral pain in L fingers Identification Identification Confirmed Yes Identification Confirmed By name, MR Previous Therapy Previous Therapy/Therapies Yes History of Therapy Pt has had manual therapy for R wrist, plantar fasciitis, and sciatica Patient Questionnaires Quick Dash- Upper Extremity Quick Dash UE Score 34.1 Quick Dash UE Impairment 20 to 39% Impaired (Score 20- 39) Quick Dash- Work and Sports Modules Quick Dash W&S Score W 43.75, S 43.75 Quick Dash Work and Sport Impairment 40 to 59% Impaired (Score 40- 59) Goals Objective Measurements Objective Measurements AROM: L IP +20 to 52 (R IP +12 to 82); L MCP +10 to 31 (R MCP +10 to 50) Stations Superintendent: R 110, 90, 100 (avg 100# ) L 98, 85, 95 (avg 92.7#) Pinch: lateral R 22#, L 20#; pincer R 15#, L 12#; 3 jaw R 15#, 12# Treatment Treatment OT performed scar massage and educated pt on correct performance. Longterm Goals Longterm Goals 1. Pt will demonstrate L 1st IP AROM flex to 70 or better for improved object manipulation. 2. 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 3. Pt will demonstrate L pain free straight tooth gear generator operator strength within 10# or dominant hand for improved leisure tasks. 4. Pt will report improved perceived function with an improved QuickDash score of 25 or better. 5. Pt will report improved work function with an improved QuickDash W score of 25 or better. 6. Pt will report improved sport/leisure function with an improved QuickDash S score of 35 or better. 7. Pt will be I with HEP Assessment/Plan Assessment Patient Response Excellent Rehabilitation Potential Excellent Impairments Identified ADLs,Body Mechanics,Functional Activities,Pain,Weakness, Range of Motion,Meaningful Activities,Stiffness,Soft Tissue Mobility Treatment Assessment Pt is 28 yo M who has been referred for skilled OT services due to L hand weakness after injury to L thumb per order. Pt is R hand dominant. Pt reports that he cut himself on 02/07/24 when processing a deer. His knife slipped cutting himself near his L thumb IP. He said he could see bone, but he cleaned and dressed his wound and allowed it to heal. A few days after original injury he noted swelling and bruise. Pt went to his PCM approximately 1 month after injury due to persistent pain and decreased strength in his hand. Pt reports that recent xray showed a possible bone spur. 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 For leisure, pt enjoys weight lifting, functional fitness, cardio and generally uses electrical machinist weights. Pt reports that he typically ? pushes through the pain?. Pt reports pain primarily on palpation of scar area and surrounding IP, with gripping, and with straight tooth gear generator operator and twist combination movements. Pt describes pain as initiating at the scar and then radiating throughout his thumb. Pt describes as sharp and 6/10. Pt reports occasional tingling in R thumb. Pt demonstrates a less than 8# straight tooth gear generator operator strength difference; however, pt reports this is with 6/10 pain. Pt?s pinch strength difference are within norms and without any increased c/o pain. Pt presents with decreased web space in both hands with pronounced adductor tightness. OT is able to palpate thickening on the dorsum of L thumb proximal to IP, likely scar tissue from initial injury. Pt would benefit from skilled OT services to address STM, ROM, strength, pain management, and return to PLOF. Home Exercise Program HEP: scar massage, DIP PROM, adductor release techniques Reviewed with Patient Goals Plan Length of treatment (weeks) 10 Plan of Care Start Date 04/11/24 Plan of Care End Date 06/20/24 Treatment Frequency Once a Week Treatment Duration 45 Minutes Therapeutic Contents Active Range of Motion,Client Education,Functional Activities,Home Exercise Program,Joint Protection, Manual Therapy,Education, Neuromuscular Re-Education, Stretching/Flexibility Activities,Therapeutic Activities,Therapeutic Exercises,Modalities Modalities As Needed Types of Modalities Contrast Bath Additional Types of Modalities CP, PB, MHP Patient Instruction Home Exercise Program,Plan of Care,Questions/Concerns Functional Wrist/Hand Scan Hand Side Sensory Assessment Sensory Profile2 OT Outpatient Treatment Note - Adult Start: 04/11/24 10:40 Freq: Status: Active Protocol: Document 07/27/24 09:22 ARNAUD (Rec: 07/27/24 09:35 ARNAUD [id number]) OT Outpatient Adult Treatment Note Visit Information Visit Number 3/5 (7 previous) Plan of Care Dates 06/20/23 - 07/26/24 Insurance Information [employer], 12 visits Setting Treatment Setting Outpatient Care Visit Type Note Type Discharge Summary - - Objective Objective Measurements Stations Superintendent: L 125, 119, 85 (avg 109. 7 #) Pinch: lateral L 22.25#, pincer 19#, 3 jaw 22# Quick Dash: 18.2, Quick Dash Work 18.75, Quick Dash 12.5 IP AROM flex to 72; MCP flex 46 Longterm Goals 1. Pt will demonstrate L 1st IP AROM flex to 70 or better for improved object manipulation. MET 05/20/24 1a. Pt will demonstrate L 1st IP AROM flex to 80 or better for improved object manipulation. 2. 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 3. Pt will demonstrate L pain free straight tooth gear generator operator strength within 10# or dominant hand for improved leisure tasks. MET 06/06/24 4. Pt will report improved perceived function with an improved QuickDash score of 25 or better. MET 06/06/24 4a. Pt will report improved perceived function with an improved QuickDash score of 8 or better. 5. Pt will report improved work function with an improved QuickDash W score of 25 or better. MET 06/06/24 5a. Pt will report improved work function with an improved QuickDash W score of 10 or better. 6. Pt will report improved sport/leisure function with an improved QuickDash S score of 35 or better.MET 06/06/24 7. Pt will be I with HEP MET - - Assessment Patient Response to Treatment Excellent Impairments Identified ADLs,Body Mechanics,Functional Activities,Pain,Weakness, Range of Motion,Meaningful Activities,Stiffness,Soft Tissue Mobility Progress Towards Goals Excellent Progress,Appropriate for Discharge Assessment of Overall Progress Improving Assessment of Improvement Pt was last seen by skilled OT services on 07/06/24. Pt some continued pain and difficulty specific to lateral pinching tasks (for example; opening a frozen resealable bag or performing a sheet style patient transfer). He also continues to have increased pain with cold temperatures. He reports that all other daily use and functional tasks have improved. In addition he shows excellent progress with respect to ROM, straight tooth gear generator operator and pinch strength, and perceived function (see objective section for details). Pt is I with his HEP and will likely continue to make gains with respect to pain and function by continuing this. Spoke with pt on 07/25/24, pt says he is ready to d/c and comfortable continuing on his own. D/C from skilled OT services at this time. Reviewed with Patient/Caregiver Goals,Progress Being Made Patient/Caregiver Understanding Excellent - Plan Therapy Recommendations Discharge to Home Exercise Program
== END 2024-07-28 13:58 | disposition home or self-care (01) ==
LOC: OT 09:00
PROVIDERS: Family Provider Pediatrics
DX: M79.645 Pain in left finger(s) (principal)
CPT/HCPCS: 97018; 97110; 97140; 97165

== ENCOUNTER 2025-03-03 07:13 | Day surgery (SDC) | payer OTHER, SELFPAY ==
--- NOTE | 2025-03-03 | PATH_ITS ---
[facility] Accession Number: [id number] No. of containers..06 Tissue . 01 Material submitted: . PART A: duodenum - DUODENUM BX PART B: duodenum bulb - DUODENUM BULB PART C: ANTRUM - ANTRUM PART D: esophagus, E-G Junction - GE JUCTION PART E: esophagus - MID ESOPHAGUS BX PART F: esophagus - DISTAL ESOPHAGUS . 01 Diagnosis: Part A: DUODENUM BX: Duodenal mucosa with no diagnostic alterations. No active inflammation and no evidence of celiac disease. . Part B: DUODENUM BULB: Duodenal mucosa with no diagnostic alterations. No active inflammation and no evidence of celiac disease. . Part C: ANTRUM: Gastric mucosa with minimal chronic inflammation and focal intestinal metaplasia. No Helicobacter organisms identified on H/E stain. No dysplasia or malignancy identified. . Part D: GE JUCTION: Gastroesophageal junction mucosa with mild chronic inflammation and scant focal goblet cell metaplasia. No dysplasia identified. See comment. . Specimen Comments: The presence of focal goblet cell metaplasia may represent either early Gillis's metaplasia or intestinal metaplasia of gastric cardia mucosa in the setting of chronic inflammation. Correlation with the endoscopic appearance may be helpful in further evaluation. . Part E: MID ESOPHAGUS BX: Squamous mucosa with no diagnostic alterations. Eosinophils are not increased. . Part F: DISTAL ESOPHAGUS: Squamous mucosa with mild changes consistent with reflux. No evidence of eosinophilic esophagitis. [facility] 03/15/2025 1254 Local . 01 Electronically signed: . Juanjose Keyes MD, Pathologist NPI- [id number] . 01 Gross description: . A. Received in formalin with two patient identifiers and duodenum and consists of three bridges tissues ranging from 0.1 cm up to 0.3 cm in greatest dimension which are submitted in toto in cassette A1. . B. Received in formalin with two patient identifiers and duodenal bulb biopsy and consists of a single, 0.2 cm in greatest dimension, bridges tissue, submitted in toto in cassette B1. . C. Received in formalin with two patient identifiers and antrum and consists of two bridges tissue averaging 0.2 cm in greatest dimension, which are submitted in toto in cassette C1. . D. Received in formalin with two patient identifiers and GE junction biopsy and consists of two bridges tissues measuring 0.1 and 0.3 cm in greatest dimension, which are submitted in toto in cassette D1. . E. Received in formalin with two patient identifiers and mid esophagus biopsy and consists of a single, white irregular soft tissue measuring 0.2 cm in greatest dimension, which is submitted in toto in cassette E1. . F. Received in formalin with two patient identifiers and distal esophagus biopsy and consists of two white tissues measuring 0.2 cm and 0.3 cm in greatest dimension, which are submitted in toto in cassette F1. ([id number]) /MRV 03/15/2025 1254 Local . 01 Pathologist provided ICD-10: K21.00, K22.70, K29.30 . 01 CPT . 970443, 601658, 035750, 805859, 958257, [id number] Specimen Comment: A courtesy copy of this report has been sent to [phone] Performed at: [address] [address], [place], [place] [id number] MD Juanjose Keyes MD Phone: [phone]
[2025-03-03] MEDS: LACTATED RINGERS 1,000 ML 42 ML IV (07:41)
--- NOTE | 2025-03-03 07:41 | PM.HP.IH.1 ---
History of Present Illness History of Present Illness Date Patient Seen: 03/03/25 Time Patient Seen: 07:41 Chief complaint: SDC Narrative: Leonides is a 29 year old man with longstanding GERD and a family history of colon cancer. See December clinic note for details. Meds Home Medications and Allergies Home Medications ?Medication ?Instructions ?Recorded ?Confirmed ?Type ibuprofen 200 mg tablet 600 mg PO BID ##0 10/11/11 01/06/25 History acetaminophen 500 mg tablet 500 mg PO Q4HP ##0 02/16/12 01/06/25 History (Tylenol Extra Strength) creatine monohydrate 1 gram g PO 01/06/25 01/06/25 History chewable tablet omeprazole 20 mg capsule,delayed 20 mg PO BID 01/06/25 01/06/25 History release sodium,potassium,mag sulfates 17.5 See Rx Instructions PO .COMPLEX 01/06/25 Rx gram-3.13 gram-1.6 gram oral soln #354 mL (Suprep Bowel Prep Kit) Allergies Allergy/AdvReac Type Severity Reaction Status Date / Time No Known Drug Allergies Allergy Verified 01/06/25 15:59 Exam Const General: healthy appearing Assessment & Plan Assessment and plan (1) Family history of colon cancer: Status: Acute (2) GERD (gastroesophageal reflux disease): Qualifiers: Esophagitis presence: without esophagitis Qualified Code(s): K21.9 - Gastro-esophageal reflux disease without esophagitis Status: Acute Plan EGD and colonoscopy Time-Based Coding :: [TOTAL MINUTES] spent with patient and on the chart (including review of chart, obtaining history, exam, reviewing outside data, placing orders, documenting exam and treatment plan, and counseling patient) on [DATE]. PROFEE Configuration Consultant Document charge(s): No
[2025-03-03 07:57] VITALS: BP 112/78; PULSE 65; RESP 16; TEMP 36.8; O2SAT 97
--- NOTE | 2025-03-03 08:54 | PM.OP.EC ---
Operative Date/Time/Diagnoses Date of procedure: 03/03/25 Time of procedure: 08:54 Pre-op diagnosis: GERD, family history of colon cancer Post-op diagnosis: same Procedure & Clinicians Study performed: Esophagogastroduodenoscopy and colonoscopy Same procedure(s) as scheduled: Yes Surgeon: Honorio Quiroz Anesthesia Type: MAC +/- Procedure Notes Procedure in detail: Surgeon: Honorio Quiroz MD Anesthesia: Mitra Monzon CRNA Procedure in detail: A timeout was performed. A bite blocked was placed and monitors were attached to the patient. The patient was positioned in the left lateral decubitus position. Sedation was administered. Once the patient was sedated the endoscope was inserted through the bite block and passed through the esophagus and stomach and into the duodenum. No obvious abnormalities were noted in the descending duodenum. Random biopsies were taken from the duodenum with cold forceps. The scope was withdrawn into the duodenal bulb and random biopsies were taken from the duodenal bulb with cold forceps. We then withdrew the scope into the stomach. Random biopsies were taken from the antrum with cold forceps. The endoscope was retroflexed and no hiatal hernia was seen. The endoscope was straightned and withdrawn into the esophagus. There appeared to be some mild inflammation at the GE junction and biopsies were taken from the GE junction with cold forceps. Rest of the esophagus appeared grossly normal. Random biopsies were taken from the distal and mid esophagus with the cold forceps. EGD findings: Mild inflammation at the GE junction Next we repositioned the patient for a colonoscopy. A digital rectal exam was performed and was normal. The colonoscope was inserted and advanced to the cecum. The appendiceal orifice was identified and photographed. The scope was slowly withdrawn over greater than 6 minutes. No polyps or other abnormalities were found. The scope was retroflexed in the rectum and no abnormalities were seen. Colonoscopy findings: Normal colon Total procedural EBL: 5 mL Scope withdrawal time: 8 minutes Sedation minutes: 25 minutes Estimated Blood Loss: 5 Complications: none Post-procedure Disposition: PACU
[2025-03-03 08:59] VITALS: BP 109/69; PULSE 68; RESP 20; TEMP 36.2; O2SAT 94
[2025-03-03 09:00] VITALS: BP 105/72; PULSE 64; RESP 20; O2SAT 94
[2025-03-03 09:09] VITALS: BP 145/69; PULSE 56; RESP 20; O2SAT 100
== END 2025-03-03 09:24 | disposition home or self-care (01) ==
PROVIDERS: Visit Provider Surgery
PROC: 0DJ08ZZ Inspection of Upper Intestinal Tract, Via Natural or Artificial Opening Endoscopic (ICD-10-PCS; CPT 43239; principal; 2025-03-03 08:15)
PROC: 0DJD8ZZ Inspection of Lower Intestinal Tract, Via Natural or Artificial Opening Endoscopic (ICD-10-PCS; CPT 45378; 2025-03-03 08:15)
DX: Z12.11 Encounter for screening for malignant neoplasm of colon (principal); Z80.0 Family history of malignant neoplasm of digestive organs; K21.00 Gastro-esophageal reflux disease with esophagitis, without bleeding; K31.A0 Gastric intestinal metaplasia, unspecified; E66.9 Obesity, unspecified
CPT/HCPCS: 43239; G0105; 45380; J2704; J7120

== ENCOUNTER → 2025-04-25 08:04 | Outpatient (CLI) | payer OTHER, SELFPAY ==
--- NOTE | 2025-04-25 08:04 | DI.ECHO.S_ITS ---
[facility] +---------+ [facility] : : [address] : : [place] : : [address] : : Phone: [phone] Echocardiogram Report + + :Name: KT WALKER Study Date: 04/25/2025 Height: 74 in : :[facility] ReadingLocation: Weight: 275 lb : : Gender: Male BSA: 2.5 m2 : :: 1995 Age: 29 yrs BP: 149/89 mmHg: :Reason For Study: SYNCOPE : :Ordering Physician: JENN, : :SHASHI Performed By: Kelby Bravo : :Referring: SHASHI BARAJAS : + + Interpretation Summary 1) Normal left ventricular size, wall motion, and systolic function (EF 60- 65%). 2) Mildly enlarged right ventricle with normal function. 3) No significant valvular abnormalities. 4) No prior Echo available for comparison. Procedure: A two-dimensional transthoracic echocardiogram with color flow and Doppler was performed. The study quality was technically adequate. There is no prior echocardiogram noted for this patient. The patient was in normal sinus rhythm during the exam. Left Ventricle: The left ventricle is normal in size. Left ventricular wall thickness is at the upper limits of normal. There is no ventricular septal defect visualized. The ejection fraction is estimated to be 60-65%. There are no focal wall motion abnormalities. Diastolic parameters suggest probable normal left ventricular diastolic function and normal filling pressures. Right Ventricle: The right ventricle is mildly dilated. The right ventricular systolic function is normal. Atria: The left atrial size is normal. Right atrial size is normal. There is no Doppler evidence for an interatrial shunt. Mitral Valve: The mitral valve leaflets appear normal. There is no evidence of stenosis, fluttering, or prolapse. There is trace mitral regurgitation. Aortic Valve: The aortic valve is trileaflet. The aortic valve opens well. There is no aortic valve stenosis. No aortic regurgitation is present. Tricuspid Valve: The tricuspid valve leaflets are thin and pliable. No tricuspid regurgitation. Pulmonary artery pressures cannot be estimated because of the lack of a measurable TR jet velocity. Pulmonic Valve: The pulmonic valve leaflets are thin and pliable; valve motion is normal. There is a trace or physiologic amount of pulmonic regurgitation. Great Vessels: The aortic root is normal size. The dimensions of the ascending aorta are normal. The pulmonary artery is normal size. The inferior vena cava was not visualized. Pericardium/ Pleura There is no pericardial effusion. There is no pleural effusion. MMode/2D Measurements & Calculations LVIDd: 5.3 cm LVOT diam: 2.2 cm LVIDs: 3.5 cm Ao root diam: 3.1 cm FS: 33.1 % asc Aorta Diam: 3.5 cm EPSS: 0.70 cm IVSd: 1.1 cm LVPWd: 1.0 cm LV hassan. diameter/BSA (cm/m^2): 2.1 LV sys. diameter/BSA (cm/m^2): 1.4 LA A2 area: 18.5 cm2 RA long axis: 5.3 cm LA A4 area: 25.4 cm2 RA area: 18.6 cm2 LA length (vol): 6.0 cm RA vol: 55.7 ml LA vol: 66.1 ml RA : 22.4 ml/m2 LA vol index: 26.6 ml/m2 RVD1 (basal): 4.7 cm RVD2 (mid): 3.4 cm TAPSE: 2.6 cm Doppler Measurements & Calculations Ao V2 max: 144.2 cm/sec LVOT Max Dawson: 101.9 cm/sec Ao V2 mean: 98.6 cm/sec LV V1 max P.2 mmHg Ao max P.3 mmHg LV V1 VTI: 22.4 cm Ao mean P.4 mmHg OREN(I,D): 3.1 cm2 Ao V2 VTI: 27.0 cm OREN(V,D): 2.7 cm2 sev ratio: 0.83 OREN indexed to BSA (cm^2/m^2): 1.3 MV E max dawson: 79.4 cm/sec PA V2 max: 116.6 cm/sec MV A max dawson: 45.3 cm/sec PA V2 mean: 89.4 cm/sec MV E/A: 1.8 PA mean P.3 mmHg Med Peak E' Dawson: 8.6 cm/sec PA pr(Accel): 22.5 mmHg E/E' med: 9.3 Lat Peak E' Dawson: 11.7 cm/sec E/E' lat: 6.8 E/e' average: 8.0 MV dec time: 0.20 sec SV(LVOT): 84.9 ml Reading Physician:10:57 AM
== END ==
LOC: ECHO 08:04
PROVIDERS: Referring Provider Orthopaedic Surgery; Visit Provider Orthopaedic Surgery
DX: Z00.00 Encounter for general adult medical examination without abnormal findings (principal)
CPT/HCPCS: 93306